=== PATIENT | female | born 1950 | race Caucasian/White ===

== ENCOUNTER 2022-12-18 19:37 | Emergency (ER) | payer MEDICARE, BC, SELFPAY ==
--- NOTE | ~2022-12-18 | XR_ITS ---
EXAMINATION: XR wrist LT 2V INDICATION: Left wrist pain, initial encounter TECHNIQUE: Two views of the left wrist are obtained. COMPARISON: None available FINDINGS: There is an acute, traumatic, closed, comminuted fractures of the distal radius which exten ds to the distal articular surface. There are 30 degrees of dorsal angulation at the fracture site. T here is an acute transverse ulnar styloid avulsion. Soft tissue swelling surrounds the fractures. No additional acute osseous abnormality is identified. 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 IMPRESSION: 1. Comminuted intra-articular fracture of the distal radius with dorsal angulation. 2. Ulnar styloid avulsion. Reviewed, dictated and finalized at location F. IMPRESSION: 1. Comminuted intra-articular fracture of the distal radius with dorsal angulat ion. 2. Ulnar styloid avulsion.
--- NOTE | ~2022-12-18 | XR_ITS ---
XR wrist LT min 3V 12/18/2022 21:37 Indication: Status post reduction left wrist fracture Procedure: 3 views left wrist performed in fiberglass cast which obscures bone detail. Comparison: 12/18/2022 Findings: There is a comminuted intra-articular fracture of the distal aspect of the radius with dors al displacement and angulation, stable compared with prior study. There is a triquetral avulsion frac ture posteriorly. There is an ulnar styloid avulsion fracture. Impression: 1: Stable alignment of comminuted intra-articular displaced distal radial fracture post reduction. 2: Ulnar styloid avulsion fracture. 3: Ossific density dorsal to the carpal bones on the lateral view, consistent with age-indeterminate triquetral fracture. Reviewed, dictated and finalized at location A. Impression: 1: Stable alignment of comminuted intra-articular displaced distal radial fract ure post reduction. 2: Ulnar styloid avulsion fracture. 3: Ossific density dorsal to the carpal bones on the lateral view, consistent w ith age-indeterminate triquetral fracture.
--- NOTE | ~2022-12-18 | XR_ITS ---
EXAMINATION: XR forearm LT 2V INDICATION: Left wrist and forearm pain TECHNIQUE: Two views of the left forearm are obtained. COMPARISON: None available FINDINGS: There is an acute, traumatic, closed, comminuted fractures of the distal radius which exten ds to the distal articular surface. There are 30 degrees of dorsal angulation at the fracture site. T here is an acute transverse ulnar styloid avulsion. Soft tissue swelling surrounds the fractures. No additional acute osseous abnormality is identified. IMPRESSION: 1. Comminuted intra-articular fracture of the distal radius with angulation. 2. Ulnar styloid avulsion. Reviewed, dictated and finalized at location F.
[2022-12-18 19:41] VITALS: BP 169/73; PULSE 86; RESP 18; TEMP 36.8; O2SAT 99
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
[2022-12-18] MEDS: fentaNYL CITRATE INJ (*CRX) 100 MCG/2 ML VIAL 50 MCG IV PUSH (20:47)
[2022-12-18] MEDS: ONDANSETRON INJ 4 MG/2 ML VIAL IV PUSH (20:47)
== END 2022-12-18 22:33 | disposition home or self-care (01) ==
PROVIDERS: Emergency Provider Emergency Medicine; PCP Family Medicine
DX: S52.572A Other intraarticular fracture of lower end of left radius, initial encounter for closed fracture (principal); S52.612A Displaced fracture of left ulna styloid process, initial encounter for closed fracture; V18.0XXA Pedal cycle driver injured in noncollision transport accident in nontraffic accident, initial encounter
CPT/HCPCS: 25624; 73090; 73100; 73110; 96374; 96375; 99285; A4565; J2405; J3010

== ENCOUNTER 2022-12-23 01:38 | Day surgery (SDC) | payer MEDICARE, BC, SELFPAY ==
[2022-12-21 11:20] VITALS: BMI 24.0
--- NOTE | 2022-12-21 11:28 | PC.NURSE ---
Report to the Outpatient Waiting Room, entrance under the green pavilion located off [facility], at time __0830 on date ___12/23/22____. Planned Procedure Time: __1030 . Time changes happen often and if your time is changed the preop area will call you the afternoon before. - You and your visitor will be asked to self-screen and do not enter if you have any COVID symptoms. - A mask is optional within the hospital at this time. Patients may have clear liquids (water, carbonated beverages, clear teas, apple juice) until 3 hours prior to surgery (0730 AM) with a maximum of 20 ounces. - No food from midnight until time of surgery - Infants may have breast milk until 4 hours before surgery, formula 6 hours prior to surgery. - Children will be allowed to drink immediately following surgery. If applicable, please bring a bottle or sippy cup to assist with drinking. Juice, water, soda, and popsicles are readily available. For infants on formula, please bring formula the day of surgery. Pacifiers are allowed. Take the following medications with a SIP of water the morning of surgery: TYLENOL IF NEEDED DO NOT STOP ANY OF YOUR OTHER PRESCRIPTION MEDICATIONS PRIOR TO SURGERY ?EXCEPT THE FOLLOWING Medications to discontinue per physician N/A Date to take last dose Please no make-up, nail uzbek, hairspray, perfume, deodorant, or body powder the day of surgery. No jewelry (including any body piercings) or valuables the day of surgery, leave them at home. Please take a shower or bath the night before, or the morning of, surgery with an antibacterial soap. Wear comfortable, loose fitting clothing. Children are encouraged to wear pajamas. - Jewelry must be removed prior to entering the operating room. Rings and piercings that are not removed may be cut off. - The hospital will not accept responsibility for valuables. - Please leave all valuables, including medications, at home the day of surgery. If you are going home after surgery, a licensed yard driver must drive you home. - NO public transportation without another adult if you receive anesthesia. - We recommend that an adult stay with you for 24 hours following discharge. - We also recommend that you do not drive, make important decision, drink alcoholic beverages, or take any drugs that were not prescribed by your health care provider for at least 24 hours after your discharge time. For Pediatric surgeries, we recommend two adults accompany the child home. Follow any additional instructions given to you from your surgeon. If you or anyone in your household have experienced Covid symptoms in the past week, please notify your surgeon or the nurse liaison at the phone number below for possible testing. Telephone instructions given to ___PATIENT and asked if any additional questions and then verbalized understanding. Patient advised to call surgeon office or pre surgery nurse liaison [phone] if any additional questions.
[2022-12-23] VITALS (10 sets, daily range): BP systolic 154–192; BP diastolic 66–82; PULSE 60–70; RESP 14–18; TEMP 36.2–36.6; O2SAT 92–100; BMI 24.5
--- NOTE | ~2022-12-23 | XR_ITS ---
EXAMINATION: XR surgery orthopedic DATE: 12/23/2022 08:54 INDICATION: Distal left radius fracture. TECHNIQUE: 4 intraoperative spot fluoroscopic views of left wrist were obtained. I was not present. F luoroscopy exposure time was 57 seconds. COMPARISON: Left wrist radiograph 12/18/2022 FINDINGS: There is a comminuted fracture of distal radius status post open reduction internal fixatio n with volar plate and screws. The main distal fracture fragment demonstrates near-anatomic alignment . There is an avulsion fracture of the ulnar styloid. IMPRESSION: 1. Comminuted fracture of distal radius status post open reduction internal fixation. 2. Avulsion fracture of the ulnar styloid. Reviewed, dictated and finalized at location A. IMPRESSION: 1. Comminuted fracture of distal radius status post open reduction internal fix ation. 2. Avulsion fracture of the ulnar styloid.
--- NOTE | 2022-12-23 06:56 | P.PNAN_ITS ---
Anes - Initial Pre Proc Eval Procedure: Operation Date: 12/23/22 10:30 Proposed Procedures p Open Reduction Internal Fixation of Left Wrist - Abhijit Callahan MD Date/Time: 12/23/22 06:56 Surgeon: Abhijit Callahan MD Pre Op Diagnosis: left wrist fracture Patient Data Age: 72 Gender: F Height: 1.63 m Weight: 63.7 kg Allergies Allergy/AdvReac Type Severity Reaction Status Date / Time No Known Allergies Allergy Verified 12/21/22 11:19 Home Medications Medication Instructions Recorded Confirmed Type acetaminophen 325 mg tablet 325 mg PO Q6H PRN Pain 12/20/22 12/21/22 History (Tylenol) Patient hx anesthesia problems: none Family hx anesthesia problems: none Results Review: All pre-operative results and documents have been reviewed as part of the pre-operative evaluation. [facility] Past Medical History Medical History (Updated 12/23/22 @ 06:57 by Joce Varghese MD) Fracture of left distal radius No pertinent past medical history Surgical History Surgical History (Updated 12/20/22 @ 14:57 by Lisa Yan MA) No pertinent past surgical history Family History Family History (Updated 12/20/22 @ 15:06 by Lisa Yan MA) Mother Lung cancer Cerebrovascular accident Father Lymphoma Social History Social History (Updated 12/20/22 @ 15:26 by Lisa Yan MA) Smoking status: Never smoker Second hand tobacco smoke exposure: No Alcohol intake: never Substance use: never Substance use type: does not use Lack of Transportation: No Lack of Food: Never True Current Housing: I Have Housing Concerned About Future Housing: No Difficulty Paying Gas/Electric Bills: No Difficulty Paying for Meds: No Currently Unemployed: YES Education: High School Diploma/GED Difficulty w/ Childcare or Family Care: No Living arrangements: with family Additional living arrangements comments: LIVES WITH SPOUSE - [facility] Spiritual care concerns: No Anes - Eval Final PreProcedure Day of Procedure 12/23/22 06:56 Patient weight: normal Heart: regular rate and rhythm Lungs: clear to auscultation and normal air movement Airway: Mallampati scale class II Neurological: alert and oriented Last oral intake: >/= 8 hours ASA classification: I Emergent: no Anesthetic plan: proceed Anesthesia type and monitoring: general LMA Results Review: All pre-operative results and documents have been reviewed as part of the pre- operative evaluation. Informed Consent: The patient's anesthetic plan and its attendant risks and benefits were discussed with the patient/family/POA. Questions were solicited and answers provided to the satisfaction of the patient/family/POA.
[2022-12-23] MEDS: LACTATED RINGERS 1,000 ML 30 ML IV CONT (07:05)
[2022-12-23] MEDS: KETOROLAC 15 MG/ML VIAL (*BKC) IV PUSH (07:11)
[2022-12-23] MEDS: ACETAMINOPHEN 500 MG TABLET 1000 MG PO (07:11)
--- NOTE | 2022-12-23 07:15 | SUR.PREOP ---
0715- Displaced fracture of left wrist, shave and scrub deferred in pre-op. Patient will go to OR with splint in place.
--- NOTE | 2022-12-23 07:17 | WPDHPUPDATE1 ---
History and Physical Update Update Date/Time: 12/23/22 07:17 History and Physical has been reviewed, including an updated exam of the patient. There are NO changes in the patient's condition. Risks, benefits, and alternatives have been discussed and questions answered. Patient agrees to proceed with procedure.
[2022-12-23] MEDS: ceFAZolin 2 GM/D5W 50 ML 2 GM/50 ML BAG IVPB (07:27)
[2022-12-23] MEDS: BUPIVACAINE/EPINEPHRINE 0.5% 10 ML VIAL 50 ML INFILTRATE (08:04)
[2022-12-23] MEDS: fentaNYL CITRATE INJ (*CRX) 100 MCG/2 ML VIAL 25 MCG IV PUSH ×4 (09:14→09:47)
--- NOTE | 2022-12-23 10:11 | W.PM.PROC2 ---
Procedure Note - Detailed Date of Procedure 12/23/22 Pre-op Diagnosis Left distal radius extra-articular fracture. Post-op Diagnosis Same Procedure Performed ORIF distal radius with volar plate, left Surgeon Abhijit Callahan MD Anesthesia General Description of Procedure Preoperative antibiotics were given. A general anesthetic was administered. The hand was prepped and draped in the usual sterile fashion with a well-padded tourniquet. The limb was exsanguinated and the tourniquet inflated to 250 millimeters of mercury. A longitudinal incision was created over the flexor carpi radialis tendon. Dissection was brought down through the sheath. The pronator quadratus was identified and released off of the radius. 5 pounds of finger trap traction applied. The fracture was carefully exposed and cleared of debris. Reduction was obtained with traction and manipulation. Fluoroscopy was used to confirm anatomic reduction. The volar plate was placed on the radius and the position was confirmed. Provisional pins were placed. The dynamic cortical screw was applied. The plate was fine tuned and fluoroscopy was use to confirm that the joint would not be violated. Subsequent distal pins and screws were placed, followed by the proximal row. The wound was irrigated and closed. 2-0 Vicryl suture was used to reapproximate the pronator quadratus. The tourniquet was released and meticulous hemostasis was confirmed. The skin was closed with 3-0 Monocryl suture and a running 4-0 Monocryl suture. Steri-Strips were applied on the skin. A sterile bulky dressing with a volar splint was applied. Implants Accu Med volar wrist locking plate. Estimated Blood Loss 25 Drains No Complications No immediate complications Condition Stable Disposition PACU AM [facility] Surgery - Charge Forward: Surgery [facility]
[2022-12-23] MEDS: ONDANSETRON INJ 4 MG/2 ML VIAL IV PUSH (10:18)
[2022-12-23] MEDS: oxyCODONE HCL (*CRX) 5 MG TAB IR PO (10:40)
== END 2022-12-23 11:22 | disposition home or self-care (01) ==
PROVIDERS: PCP Family Medicine; Visit Provider Orthopaedic Surgery
PROC: (CPT 25575; principal; 2022-12-23 07:30)
DX: S52.552A Other extraarticular fracture of lower end of left radius, initial encounter for closed fracture (principal); V19.9XXA Pedal cyclist (driver) (passenger) injured in unspecified traffic accident, initial encounter
CPT/HCPCS: 25607; 99199; A9270; C1713; J0690; J1100; J1885; J2405; J2704; J3010; J7120